=== PATIENT | male | born 1995 | race Caucasian/White ===

== ENCOUNTER 2016-11-01 19:56 | Inpatient (IN) | payer BC, OTHER ==
[~2016-11-01] VITALS: Ht 180.3 cm; Wt 77.1 kg
[2016-11-01 20:25] VITALS: BP 131/75
--- NOTE | 2016-11-01 20:35 | NUR ---
PRE-ADMISSION ASSESSMENT SEEN PATIENT IN INTAKE. PATIENT ALERT AND ORIENTED X 4. VS BP-131/75 P-96 R-18 T-97.6. PA - 6/10 BOTTOM OF BOTH FEET. SpO2 99% ON RA. PATIENT AMBULATORY AND WITH STEADY GAIT. RESPIRATION EVEN AND UNLABORED. PATIENT STATES NO ALLERGY TO FOOD OR MEDICATION. NO SEIZURE HISTORY. PATIENT NOTED FIDGETY, RESTLESS AND UNABLE TO SIT STILL. NO N/V. PATIENT STATES HE'S HERE FOR CRYSTAL METH. LAST USE WAS TODAY. UNABLE TO PROVIDE UA AT THIS TIME. Addendum: 11/02/16 at 0525 by MARYAN PRINGLE LVN CLARIFICATION OF TIME: PATIENT WAS SEEN IN INTAKE AT 2024
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
[2016-11-01 21:59] LABS: *AMPHETAMINE, URINE POSITIVE (NEGATIVE); *BARBITURATE, URINE NEGATIVE (NEGATIVE); *CANNABINOID, URINE NEGATIVE (NEGATIVE); *COCCAINE, URINE NEGATIVE (NEGATIVE); *OPIATE, URINE NEGATIVE (NEGATIVE); *PHENCYCLIDINE SCREEN,URINE NEGATIVE (NEGATIVE)
[2016-11-01] MEDS ORDERED: LOPERAMIDE HCL 2 MG CAPSULE PO PRN ×2 (22:30)
[2016-11-01] MEDS ORDERED: ACETAMINOPHEN 325 MG TABLET PO PRN (22:30)
[2016-11-01] MEDS ORDERED: IBUPROFEN 400 MG TABLET PO PRN (22:30)
[2016-11-01] MEDS ORDERED: MIRALAX 17 GM POWD.PACK PO PRN (22:30)
[2016-11-01] MEDS ORDERED: MAGNESIUM HYDROXIDE 30 ML LIQUID UDC PO PRN (22:30)
[2016-11-01] MEDS ORDERED: MAG HYDROX/AL HYDROX/SIMETH 30 ML LIQUID UDC PO PRN (22:30)
[2016-11-01] MEDS ORDERED: ONDANSETRON 4 MG/2 ML VIAL IM PRN (22:30)
[2016-11-01] MEDS ORDERED: CLONIDINE HCL 0.1 MG TABLET PO PRN (22:30)
[2016-11-01] MEDS ORDERED: ONDANSETRON ODT 4 MG TAB.RAPDIS SL PRN (22:30)
[2016-11-01] MEDS ORDERED: DICYCLOMINE HCL 20 MG TABLET PO PRN (22:30)
[2016-11-01] MEDS ORDERED: HYDROXYZINE PAMOATE 25 MG CAPSULE PO PRN (22:30)
--- NOTE | 2016-11-01 22:32 | NUR ---
ONE TIME ATIVAN/PRN BENADRYL AND VISTARIL ADMINISTRATION PATIENT NOTED RESTLESS, NOTED PACING INSIDE HIS ROOM. IRRITABLE, AGITATED,REPORTS UNABLE TO SLEEP. CIWA 6. ONE TIME ATIVAN , OBTAIN ORDER FROM DR. NUGENT. PRN BENADRYL AND VISTARIL GIVEN. WILL MONITOR FOR EFFECTIVENESS
[2016-11-01] MEDS: diphenhydrAMINE 50 MG CAPSULE PO PRN (23:22)
[2016-11-01] MEDS ORDERED: LORAZEPAM 1 MG TABLET ONE (23:27)
[2016-11-01] MEDS ORDERED: diphenhydrAMINE 50 MG CAPSULE ONE (23:30)
[2016-11-01] MEDS ORDERED: LORAZEPAM 1 MG TABLET PO ONE (23:30)
[2016-11-01] MEDS ORDERED: HYDROXYZINE PAMOATE 25 MG CAPSULE ONE (23:30)
[2016-11-02] VITALS: BP 126/64
--- NOTE | 2016-11-02 00:32 | NUR ---
PRN ATIVAN/VISTARIL RE-ASSESSMENT PATIENT IS BED ,CIWA DOWN TO 2. ATIVAN AND VISTARIL HELPFUL. WILL CONTINUE TO MONITOR.
--- NOTE | 2016-11-02 01:00 | NUR ---
PRN BENADRYL RE-ASSESSMENT PATIENT IN BED WITH EYES CLOSED. RESPIRATION EVEN AND UNLABORED. NO S/S DISTRESS. SAFETY MEASURES IN PLACE. CALL LIGHT IN REACH. WILL CONTINUE TO MONITOR.
[2016-11-02 04:00] VITALS: BP_SYST 97; BP_SYST 99; BP_DIAS 56; BP_DIAS 63
--- NOTE | 2016-11-02 07:18 | NUR ---
END OF SHIFT NOTE PATIENT IS A 21 YEAR OLD MALE WHO PRESENTS TO [facility] FOR METH DEPENDENCE. PATIENT IS NOT ON TAPER. PATIENT FULL CODE, REGULAR DIET AND NO KNOWN ALLERGY. PATIENT WAS GIVEN ONE TIME ATIVAN FOR CIWA 6 , EFFECTIVE CIWA DOWN TO 2. PATIENT WAS ALSO GIVEN BENADRYL AND VISTARIL. PATIENT SLEPT 6 HOURS. FLUID INTAKE OF 954 ML. VOIDED X 3. NO BM. SKIN INTACT. ON FALL PRECAUTION. SAFETY MEASURES IN PLACE. CALL LIGHT IN REACH. WILL CONTINUE TO MONITOR
--- NOTE | 2016-11-02 07:30 | NUR ---
START OF SHIFT Received report from candle molder nurse. 21 year old male patient admitted on 11/01/16 for Crystal meth dependence. Pt has a history of intermittent use of Alcohol, cocaine, LSD and marijuana. Pt is A/O x4. Pt is sleeping in bed at this time. Pt is not on a taper and is receiving PRN medications only. PRN Ativan, Vistaril and clonidine administered at night and effective. Pt slept for 6 hours. Pt is refusing labs at this time and stating "I would like to speak with the doctor first." Pt is resting in bed, RR even and unlabored. All needs met at this time. Will continue to monitor.
[2016-11-02 08:17] VITALS: BP 107/60
[2016-11-02] MEDS: MULTIVITAMINS,THERAPEUTIC TABLET PO SCH (09:00)
[2016-11-02] MEDS ORDERED: TUBERCULIN,PURIF.PROT.DERIV. 5 TU/0.1 ML TEST ID ONE (09:00)
[2016-11-02 13:47] VITALS: BP 116/63
[2016-11-02 16:00] VITALS: BP 114/66
--- NOTE | 2016-11-02 19:13 | NUR ---
END OF SHIFT Endorsed to nightman nurse. 21 year old male patient admitted on 11/01/16 for Crystal meth dependence. Pt has a history of intermittent use of Alcohol, cocaine, LSD and marijuana. Pt is A/O x4. Pt is sleeping in bed at this time. Pt is not on a taper and is receiving PRN medications only. No PRN medications were needed or administered throughout shift. Pt denies s/s of withdrawal and states he is just "very sleepy.". Pt is refusing labs, is aware. V/S remain WNL. Pt has adequate caloric and fluid intake. Pt is resting in bed, RR even and unlabored. All needs met at this time. Night nurse will continue to monitor.
[2016-11-02 20:00] VITALS: BP 129/67
--- NOTE | 2016-11-02 20:00 | NUR ---
START OF SHIFT NOTE RECEIVED PATIENT ALERT AND ORIENTED X 4. RESPIRATION EVEN AND UNLABORED. PATIENT C/O ANXIETY., GENERALIZED BODY ACHES 6/10, NOTED IRRITABLE AND RESTLESS. RELAXATION TECHNIQUE PROVIDED. NO N/V. RECEIVED REPORT FROM DAY SHIFT NURSE. PATIENT IS A 21 YEAR OLD MALE, ADMITTED FOR METH DEPENDENCE. PATIENT IS NOT ON TAPER, UNDER OBSERVATION. PATIENT IS FULL CODE, REGULAR DIET AND NO KNOWN ALLERGY . PATIENT RELAPSED 5 WEEKS AGO. PATIENT'S DRUG OF CHOICE ARE ALCOHOL INTERMITTENTLY 5 BEER ONCE OR TWICE A WEEK , CRYSTAL METH (IV/SNORT/PO) 1-2.5 GRAMS DAILY , COCAINE (SNORT) INTERMITTENTLY "UNKNOWN AMOUNT", LSD "10-15 HITS DAILY AND MARIJUANA OCCASIONALLY 1 GRAM . ON FALL PRECAUTION. SKIN INTACT. PATIENT DID NOT REQUIRE ANY PRN MEDICATION DURING THE DAY. PATIENT IN BED MOST OF THE DAY. ATE MEALS AND DRINKING FLUIDS. PATIENT STILL REFUSES BLOOD DRAW. EDUCATE ON RISKS/BENEFITS. LAST CIWA 0. SAFETY MEASURES IN PLACE. CALL LIGHT IN REACH. WILL CONTINUE TO MONITOR.
--- NOTE | 2016-11-02 22:19 | NUR ---
ONE TIME ATIVAN/PRN BENADRYL/VISTARIL AND ROBAXIN ADMINISTRATION PATIENT WAS GIVEN ONE TIME ATIVAN, OBTAIN ORDER FROM DR. NUGENT . PATIENT AGITATED, RESTLESS, ANXIOUS. SUNDAY 7. WILL MONITOR FOR EFFECTIVENESS. WILL CONTINUE TO MONITOR. Addendum: 11/03/16 at 0542 by MARYAN PRINGLE LVN CLARIFICATION OF TIME:ATIVAN /BENADRYL/VISTARIL AND ROBAXIN WAS GIVEN AT 0932
[2016-11-02] MEDS ORDERED: LORAZEPAM 1 MG TABLET PO ONE (23:15)
[2016-11-02] MEDS: diphenhydrAMINE 50 MG CAPSULE PO PRN (23:19)
[2016-11-02] MEDS: METHOCARBAMOL 750 MG TABLET PO PRN (23:19)
[2016-11-02] MEDS: HYDROXYZINE PAMOATE 25 MG CAPSULE PO PRN (23:20)
[2016-11-03] VITALS: BP 127/61
--- NOTE | 2016-11-03 00:19 | NUR ---
ONE TIME ATIVAN RE-ASSESSMENT PATIENT IN BED , WATCHING TV.PATIENT CALM, LYING STILL IN BED. CIWA ASSESSMENT NOW 2. WILL CONTINUE TO MONITOR.
--- NOTE | 2016-11-03 00:30 | NUR ---
PRN BENADRYL/VISTARIL RE-ASSESSMENT PATIENT IN BED ASLEEP. RESPIRATION EVEN AND UNLABORED. NO S/S OF DISTRESS. RESPIRATION EVEN AND UNLABORED. SAFETY MEASURES IN PLACE.CALL LIGHT IN REACH. WILL CONTINUE TO MONITOR.
[2016-11-03 04:00] VITALS: BP 126/66
--- NOTE | 2016-11-03 07:09 | NUR ---
Start of Shift Endorsement received from nightshift nurse. Pt is a 21 y/o male admitted for crystal meth dependence. Pt has been placed under observation under the care of Dr. Farrell. Pt is being treated by PRN medications until farther evaluation by Dr. Farrell. Pt is tolerating the taper well AEB CIWA 2 at midnight. Pt presented with withdrawal symptoms prior to midnight and received PRN Vistaril, Benadryl, Robaxin and Ativan, the medications were effective AEB CIWA 2 at midnight. VS WNL, Full Code. Pt reports sleeping 8 hours. . PT is alert and oriented x4. Pt is in STABLE condition at this time. Remains compliant with medication and diet regimen. All needs have been met, All safety measures in place per hospital policy. Bed in lowest position, side rails up x2, call-light within reach. Will continue to monitor
--- NOTE | 2016-11-03 07:30 | NUR ---
END OF SHIFT NOTE PATIENT REMAIN ALERT AND ORIENTED X 4. RESPIRATION EVEN AND UNLABORED. PATIENT C/O ANXIETY., GENERALIZED BODY ACHES 6/10, NOTED IRRITABLE AND RESTLESS. RELAXATION TECHNIQUE PROVIDED. NO N/V DURING SHIFT.PATIENT WAS GIVEN ONE TIME ATIVAN AT 2320, PRN VISTARIL AT 2320, BENADRYL AT 2319 AND ROBAXIN AT 2319, ALL MEDICATION EFFECTIVE. PATIENT COMPLIANT WITH MEDICATION , PATIENT RELAPSED 5 WEEKS AGO. PATIENT'S DRUG OF CHOICE ARE ALCOHOL INTERMITTENTLY 5 BEER ONCE OR TWICE A WEEK , CRYSTAL METH (IV/SNORT/PO) 1-2.5 GRAMS DAILY , COCAINE (SNORT) INTERMITTENTLY "UNKNOWN AMOUNT", LSD "10-15 HITS DAILY AND MARIJUANA OCCASIONALLY 1 GRAM . ON FALL PRECAUTION. SKIN INTACT. ATE MEALS WITH GOOD APPETITE AND DRINKING FLUIDS WELL. PATIENT STILL REFUSES BLOOD DRAW EXPLAINED RISKS/BENEFITS. SAFETY MEASURES IN PLACE. CALL LIGHT IN REACH. WILL CONTINUE TO MONITOR. SLEPT 8 HOURS. FLUID INTAKE 1,668 ML. VOIDED X 3. NO BM. LAST CIWA 1.
[2016-11-03 08:00] VITALS: BP 122/63
[2016-11-03] MEDS: MULTIVITAMINS,THERAPEUTIC TABLET PO SCH (09:00)
[2016-11-03 12:00] VITALS: BP 118/61
[2016-11-03 16:00] VITALS: BP 133/79
--- NOTE | 2016-11-03 19:19 | NUR ---
End of Shift Endorsement given to nightshift nurse. Pt is a 21 y/o male admitted for crystal meth dependence. Pt has been placed under observation under the care of Dr. Farrell. Pt is being treated by PRN medications until farther evaluation by Dr. Farrell. Pt is tolerating the taper well AEB CIWA 0 at 1600t. Pt has been scheduled to be discharged on 11/04/16, pt reports readiness for discharge. All documentation has been completed, discharge educated has been completed. intake: 3560, Void x2, BM x1. VS WNL, Full Code . PT is alert and oriented x4. Pt is in STABLE condition at this time. Remains compliant with medication and diet regimen. All needs have been met, All safety measures in place per hospital policy. Bed in lowest position, side rails up x2, call-light within reach. Will continue to monitor
[2016-11-03 19:23] LABS: *AMPHETAMINE, URINE POSITIVE (NEGATIVE); *BARBITURATE, URINE NEGATIVE (NEGATIVE); *CANNABINOID, URINE NEGATIVE (NEGATIVE); *COCCAINE, URINE NEGATIVE (NEGATIVE); *OPIATE, URINE NEGATIVE (NEGATIVE); *PHENCYCLIDINE SCREEN,URINE NEGATIVE (NEGATIVE)
[2016-11-03 20:00] VITALS: BP 129/70
--- NOTE | 2016-11-03 20:00 | NUR ---
Start of Shift Pt is a 21-year old, male, admitted for Crystal Meth dependence. Pt has been placed under observation under the care of Dr. Farrell. Only PRN meds as evaluated by . With PMHx of Anxiety, Depression, ADHD, Tympoplasty, Jaw Repair (2014). Pt with NKA, is Full Code and on Regular Diet. Pt is AAOx4, no SOB noted and not in respi distress. Pt is ambulatory with steady gait. Pt with NKA, is Full Code and on Regular Diet. Fall, universal and safety prec in place. Call light within reach. Kept pt warm, dry and comfortable. All needs met. Last CIWA=0. Will continue to monitor.
[2016-11-03] MEDS: METHOCARBAMOL 750 MG TABLET PO PRN (23:10)
[2016-11-03] MEDS: HYDROXYZINE PAMOATE 25 MG CAPSULE PO PRN (23:10)
--- NOTE | 2016-11-03 23:13 | NUR ---
RN note PRN Robaxin and Vistaril Pt c/o generalized muscle pain=6/10 and feeling anxious. Administered Robaxin 750 mg PO and Vistaril 50 mg PO as ordered. Will monitor and reassess.
[2016-11-04] VITALS: BP 135/61
--- NOTE | 2016-11-04 00:20 | NUR ---
RN note reassess Pt asleep on bed, no SOB nor facial grimacing noted. PRN meds effective.
[2016-11-04 04:00] VITALS: BP 127/62
--- NOTE | 2016-11-04 07:27 | NUR ---
End of Shift Pt is a 21-year old, male, admitted for Crystal Meth dependence. Pt has been placed under observation under the care of Dr. Farrell. Only PRN meds as evaluated by . With PMHx of Anxiety, Depression, ADHD, Tympoplasty, Jaw Repair (2014). Pt with NKA, is Full Code and on Regular Diet. Pt is AAOx4, no SOB noted and not in respi distress. Pt is ambulatory with steady gait. Pt with NKA, is Full Code and on Regular Diet. Fall, universal and safety prec in place. Call light within reach. Kept pt warm, dry and comfortable. All needs met. Last CIWA=0, slept for 6 hours. Endorsed to AM shift nurse for continuity of care.
--- NOTE | 2016-11-04 07:30 | NUR ---
START OF SHIFT NOTE:received pt from rigging engineer nurse, pt is in stable condition no s/s of pain or discomfort. pt is admitted to [facility] for etoh/crystal meth/cocaine withdrawal/dependence. pt is set to discharge today will assist pt in discharging. and will continue to monitor pt until pt has a safe discharge location.
[2016-11-04] MEDS: MULTIVITAMINS,THERAPEUTIC TABLET PO SCH (09:00)
[2016-11-04 10:00] VITALS: BP 109/60
[2016-11-04 13:49] VITALS: BP 139/83
[2016-11-04 17:50] VITALS: BP 136/79
--- NOTE | 2016-11-04 19:30 | NUR ---
Start of Shift Note: Patient is a 21 y/o male admitted on 11/01/16 for Crystal Meth dependence. Patient with past medical history of Depression, ADHD, Anxiety, Tympanoplasty (2010), Jaw repair (2014) & Borderline Sociopath per patient. No seizure history noted. Patient is on a regular diet with no known food and drug allergies. Full Code status. Fall & Seizure precaution noted. No taper noted. Patient is scheduled to be discharge tomorrow. Urine drug screen collected and resulted. Last Ciwa is 0. No PRN medications given during day shift. Patient is stable. Patient is alert & oriented x4. No shortness of breath noted. Respiration even & unlabored. Abdomen soft & non-distended. Bowel sounds active in all four quadrants. No nausea/vomiting noted. Patient denies pain/discomfort. No bilateral hand tremors noted. Patient denies hallucinations. Safety precautions are in place. Bed locked in lowest position. Both side rails up. Call light within pts reach. Will continue to monitor.
--- NOTE | 2016-11-04 19:30 | NUR ---
END OF SHIFT NOTE: PT IS IN STABLE CONDITION AT THIS TIME, PT HAS SAFE DISCHARGE LOCATION AND WILL DISCHARGE TOMORROW IN AM. PT IS ADMITTED UNDER OBSERVATION FOR METH AND OCCASIONAL ETOH. PT'S LAST CIWA IS 0. PT HAD PROVIDED URINE FOR DISCHARGE WILL ENDORSE PT TO WOMEN'S LACROSSE COACH NURSE.
[2016-11-04] MEDS ORDERED: HYDR-3895 PO (19:35)
[2016-11-04] MEDS ORDERED: METH-33 PO (19:35)
[2016-11-04 20:00] VITALS: BP 128/88
[2016-11-04] MEDS: HYDROXYZINE PAMOATE 25 MG CAPSULE PO PRN (22:50)
[2016-11-04] MEDS: METHOCARBAMOL 750 MG TABLET PO PRN (22:50)
[2016-11-04] MEDS: diphenhydrAMINE 50 MG CAPSULE PO PRN (22:50)
--- NOTE | 2016-11-04 22:51 | NUR ---
RN note PRN Benadryl, Robaxin and Vistaril Pt c/o inability to sleep, generalized muscle pain=6/10 and feeling anxious. Administered Benadryl 50 mg PO, Robaxin 750 mg PO and Vistaril 50 mg PO as ordered. Will monitor and reassess.
--- NOTE | 2016-11-04 23:55 | NUR ---
RN note reassess Pt asleep on bed, no SOB nor facial grimacing noted. PRN meds effective.
[2016-11-05 04:00] VITALS: BP 113/76
--- NOTE | 2016-11-05 07:18 | NUR ---
End of Shift Note: Patient is a 21 y/o male admitted on 11/01/16 for Crystal Meth dependence. Patient with past medical history of Depression, ADHD, Anxiety, Tympanoplasty (2011), Jaw repair (2014) & Borderline Sociopath per patient. No seizure history noted. Patient is on a regular diet with no known food and drug allergies. Full Code status. Fall & Seizure precaution noted. Patient is scheduled to be discharge today. Pt is going to [facility]. Urine drug screen collected and resulted. Last Ciwa is 0. Pt was given PRN Robaxin for body aches, Vistaril for anxiety & Benadryl for sleep. Pt had an uneventful night. Pt remained stable and vitals remains WNL. Pt slept for a total of 7 hours. Pt consumed 1631ml of fluids. Voided 1x with no bowel movement. All needs attended & met. Safety precautions are in place. Bed locked in lowest position. Both side rails up. Call light within pts reach. Will endorse pt to day shift nurse.
--- NOTE | 2016-11-05 07:20 | NUR ---
Start of shift note SBAR report rcv'd. Pt was admitted for ETOH dependence, methamphetamine, cocaine, LSD and marijuana use. Pt has a PMH of depression, ADHD, anxiety, borderline, tympanoplasy and jaw repair. Pt states that he feels ready for discharge. Pt has no complaints at this time. Pt is on a regular diet, NKA, and is a full code. All needs addressed at this time. Will continue to monitor pt.
[2016-11-05 08:00] VITALS: BP 120/60
--- NOTE | 2016-11-05 08:30 | NUR ---
Refused medication Pt refused to take MVI. Pt states that he doesn't feel like he needs it. All other needs addressed at this time. Will continue to monitor pt.
[2016-11-05] MEDS: MULTIVITAMINS,THERAPEUTIC TABLET PO SCH (08:43)
--- NOTE | 2016-11-05 09:02 | NUR ---
Discharge note Pt was admitted for ETOH dependence. Pt states that he feels ready for discharge. Pt has a recent CIWA of 0. VS are WNL. Pt LBM 11/04/16. Pt denies SI/HI. Pt verbalized his understanding of the discharge instructions. Pt prescriptions, discharge packet and all belongings given to pt. Pt ID band removed. Pt ambulated off of unit with [facility]PER[facility], left facility via [facility] for [facility].
== END 2016-11-05 09:02 | disposition other institution (70) | DRG 895 ==
LOC: SRC 19:56
PROVIDERS: ADMIT Internal Medicine; ATTEND Internal Medicine
PROC: HZ2ZZZZ Detoxification Services for Substance Abuse Treatment (ICD-10-PCS; principal; 2016-11-01)
PROC: HZ51ZZZ Individual Psychotherapy for Substance Abuse Treatment, Behavioral (ICD-10-PCS; 2016-11-03)
DX: F15.23 Other stimulant dependence with withdrawal (principal); Z59.0 Homelessness; F17.210 Nicotine dependence, cigarettes, uncomplicated; F10.20 Alcohol dependence, uncomplicated; F14.90 Cocaine use, unspecified, uncomplicated; Y90.9 Presence of alcohol in blood, level not specified; F16.90 Hallucinogen use, unspecified, uncomplicated; F90.9 Attention-deficit hyperactivity disorder, unspecified type; Z86.59 Personal history of other mental and behavioral disorders
CPT/HCPCS: 70030-TC; 71010; 80307; A4663; Q0163

== ENCOUNTER 2016-11-20 12:44 | Inpatient (IN) | payer BC, OTHER ==
[~2016-11-20] VITALS: Ht 180.3 cm; Wt 77.1 kg
[~2016-11-20 12:44] MED LIST: HYDROXYZINE PAM25 M1 PO; ROBAXIN750 MG PO
--- NOTE | 2016-11-20 13:10 | NUR ---
Pre Admission Pre admission completed at intake office at 1255, presented a 21 year old male from [place], patient noted fidgety and inability to sit still, patient is alert and oriented x4. vital signs: bp: 132/68 p: 85 t: 97.8 r: 20 o2 sat: 96%. Patient weighs 170 lbs and is 5 feet 11 inches. Patient educated regarding unit protocols, with good verbal understanding. Patient reports he is here to detox off of speed.
--- NOTE | 2016-11-20 14:00 | NUR ---
Admission Patient arrived on unit at 1320, patient oriented to unit and to room educated regarding call light use with good verbal understanding, patient reports he is homeless with his girlfriend. Patients body search completed, noted with intact skin no breakdown, bruising or discoloration noted. Patients body search completed by male intake no contraband found. Patient reports he does not have any allergies. Reports he does not have a primary care physician. Patient reports past medical history of: anxiety, depression, bipolar d/o, and antisocial, per patient does not recall when he was diagnosed with them. Patient denies currently taking any home medications. Reports past surgical history of: jaw surgery in 2010 and ear drum repair. Patient denies any seizure history. Patient denies any family history of substance abuse. Patient reports substance use history of: 1.methamphetamine, began using 10 years ago, reports for the past 15 days has been snorting or IV using methamphetamine 6 grams daily. 2. Xanax, began using one year ago, and reports for the past 10 days has been taking 6mg of Xanax PO daily. 3. etoh- reports began drinking alcohol 13 years ago, reports for the past 15 days has been consuming 40 oz of beer daily. Patient reports he has been to 83 treatment centers but can only recall the last two previous ones, patient reports : 1. [facility] in [place] for 1.5 weeks, in october 2016 2. [facility] for 3 days, in october 2016 Patient reports his longest period of sobriety was of over one year when he was 14 years old. Patients pupils are equal and reactive to light, 2mm. Patients abdomen is soft and non distended. No episodes of N/V/D noted, bowel sounds heard in all quadrants. Respirations are even and unlabored, no SOB, lungs clear upon auscultation. Patient presenting with: mild anxiety and moderately fidgety with admitting ciwa score of: 5. Dr. Mccabe aware of Admission, psychiatrist aware of new admission. Safety measures in place. Call light kept with in reach, all needs met and rendered, will continue to monitor closely.
[2016-11-20] MEDS ORDERED: MAGNESIUM HYDROXIDE 30 ML LIQUID UDC PO PRN (14:30)
[2016-11-20] MEDS ORDERED: MIRALAX 17 GM POWD.PACK PO PRN (14:30)
[2016-11-20] MEDS ORDERED: IBUPROFEN 400 MG TABLET PO PRN (14:30)
[2016-11-20] MEDS ORDERED: LOPERAMIDE HCL 2 MG CAPSULE PO PRN ×2 (14:30)
[2016-11-20] MEDS ORDERED: LORAZEPAM 2 MG/1 ML VIAL IM PRN (14:30)
[2016-11-20] MEDS ORDERED: CLONIDINE HCL 0.1 MG TABLET PO PRN (14:30)
[2016-11-20] MEDS ORDERED: ACETAMINOPHEN 325 MG TABLET PO PRN (14:30)
[2016-11-20] MEDS ORDERED: MAG HYDROX/AL HYDROX/SIMETH 30 ML LIQUID UDC PO PRN (14:30)
[2016-11-20] MEDS ORDERED: ONDANSETRON 4 MG/2 ML VIAL IM PRN (14:30)
[2016-11-20] MEDS ORDERED: LORAZEPAM 1 MG TABLET PO PRN ×3 (14:30)
[2016-11-20] MEDS ORDERED: ONDANSETRON ODT 4 MG TAB.RAPDIS SL PRN (14:30)
[2016-11-20] MEDS ORDERED: THIAMINE HCL 200 MG/2 ML VIAL IM ONE (14:30)
[2016-11-20] MEDS ORDERED: DICYCLOMINE HCL 20 MG TABLET PO PRN (14:30)
[2016-11-20] MEDS ORDERED: diphenhydrAMINE 50 MG CAPSULE PO PRN (14:30)
[2016-11-20 17:00] VITALS: BP_SYST 120; BP_SYST 122; BP_DIAS 63; BP_DIAS 82; TEMP 98
--- NOTE | 2016-11-20 18:55 | NUR ---
END OF SHIFT Patient alert and oriented x4, vital signs stable during shift. Patient with admitting Dx: Methamphetamine dependence. Patient continues under close observation, monitoring vital signs and ciwa scores closely. 1700 assessment patient presented with: mild anxiety and moderately fidgety with ciwa score of: 5. Patient was administered no PRNs medications during shift. Patient encouraged adequate PO fluid intake as tolerated. Encouraged to attend group therapies/sessions to learn new coping skills to prevent relapse denies any SI/HI. Safety measures in place. call light kept with in reach. all needs met and rendered. patient endorsed to night cleaner nurse, all pertinent information discussed.
--- NOTE | 2016-11-20 19:08 | NUR ---
Start of shift note Received report from day shift nurse. Pt is a 21 yo male, A+Ox4, presenting to [facility] for ETOH/Benzo/Meth dependence. Pt has NKA, is Full Code status, and on Regular diet. Pt has HX of Anxiety, Anti-social disorder, bipolar disorder, and depression. Pt is on PRN medications for observation. No s/s of distress noted at this time. Respirations even and unlabored. Will continue to monitor.
[2016-11-20 20:17] VITALS: BP 126/86; TEMP 97.9
--- NOTE | 2016-11-20 21:41 | NUR ---
PRN Ativan and Ibuprofen Pt c/o anxiety with CIWA: 5 and general body pain 5/10 and requested for PRN Ativan and Ibuprofen. Medications given and tolerated well. Will reassess within 1 HR. Will continue to monitor.
--- NOTE | 2016-11-20 22:35 | NUR ---
PRN Ativan and Ibuprofen Reassessment Medication effective. Pt shows reduction in anxiety and pain. No s/s of ASE/distress noted at this time. Respirations even and unlabored. Will continue to monitor.
[2016-11-21 00:20] VITALS: BP 121/56; TEMP 97.9
[2016-11-21 04:39] VITALS: BP 114/49; TEMP 97.6
--- NOTE | 2016-11-21 07:01 | NUR ---
End of shift note Pt is a 21 yo male, A+Ox4, presenting to [facility] for ETOH/Benzo/Meth dependence. Pt has NKA, is Full Code status, and on Regular diet. Pt has HX of Anxiety, Anti-social disorder, bipolar disorder, and depression. Pt is on PRN medications for observation. Pt was given PRN Ativan 1gm and Ibuprofen @2141. Pt slept for a total of 11 HRS. Last CIWA: 1 @0400. No s/s of distress noted at this time. Respirations even and unlabored. Will endorse to day shift nurse.
--- NOTE | 2016-11-21 07:05 | NUR ---
Start of Shift Endorsement received from nightshift nurse. Pt is a 21 y/o male admitted for alcohol, xanax and methamphetamine dependence. Pt has been placed under observation until farther evaluation by Dr. Mccabe. Pt received PRN Ativan and Motrin during the night. Pt slept 11 hours. Pt is mildly withdrawing at this time AEB CIWA 1 at 0400. VS WNL, Full Code. PT is alert and oriented x4. Pt is in STABLE condition at this time. Remains compliant with medication and diet regimen. All needs have been met, All safety measures in place per hospital policy. Bed in lowest position, side rails up x2, call-light within reach. Will continue to monitor
[2016-11-21 08:00] VITALS: BP 102/52; TEMP 98.1
[2016-11-21] MEDS ORDERED: TUBERCULIN,PURIF.PROT.DERIV. 5 TU/0.1 ML TEST ID ONE (09:00)
[2016-11-21] MEDS: FOLIC ACID 1 MG TABLET PO SCH (09:39)
[2016-11-21] MEDS: THIAMINE HCL 100 MG TABLET PO SCH (09:39)
[2016-11-21] MEDS: MULTIVITAMINS,THERAPEUTIC TABLET PO SCH (09:39)
[2016-11-21 12:00] VITALS: BP 125/80; TEMP 98.1
[2016-11-21 16:00] VITALS: BP 115/72; TEMP 98
--- NOTE | 2016-11-21 18:45 | NUR ---
End of Shift Endorsement given to nightshift nurse. Pt is a 21 y/o male admitted for alcohol, xanax and methamphetamine dependence. Pt has been placed under observation until farther evaluation by Dr. Mccabe. Pt has been scheduled to be discharged on 11/22/16. Pt did not participate in groups or activities. Pt is mildly withdrawing at this time AEB CIWA 1 at 1600. VS WNL, Full Code. Intake: 2991ml, Void x4. PT is alert and oriented x4. Pt is in STABLE condition at this time. Remains compliant with medication and diet regimen. All needs have been met, All safety measures in place per hospital policy. Bed in lowest position, side rails up x2, call-light within reach. Will continue to monitor
--- NOTE | 2016-11-21 19:10 | NUR ---
Start of shift note Received report from day shift nurse. Pt is a 21 yo male, A+Ox4, presenting to [facility] for ETOH/Benzo/Meth dependence. Pt has NKA, is Full Code status, and on Regular diet. Pt has HX of Anxiety, Anti-social disorder, bipolar disorder, and depression. Pt is on PRN medications for observation and is due for discharge tomorrow. No s/s of distress noted at this time. Respirations even and unlabored. Will continue to monitor.
[2016-11-21 20:15] VITALS: BP 138/62; TEMP 98
[2016-11-21] MEDS ORDERED: CLONIDINE HCL 0.1 MG TABLET PO ONE (22:15)
[2016-11-21] MEDS ORDERED: HYDROXYZINE PAMOATE 25 MG CAPSULE PO ONE (22:15)
[2016-11-21] MEDS ORDERED: HYDROXYZINE PAMOATE 25 MG CAPSULE PO PRN (22:15)
--- NOTE | 2016-11-21 22:25 | NUR ---
PRN Clonidine, Vistaril, and Benadryl Pt c/o anxiety and inability to sleep and requested for PRN Clonidine, Vistaril, and Benadryl. Medications given and tolerated well. Will reassess within 1 HR. Will continue to monitor.
[2016-11-21] MEDS ORDERED: HYDROXYZINE PAMOATE 25 MG CAPSULE ONE (22:28)
[2016-11-21] MEDS ORDERED: CLONIDINE HCL 0.1 MG TABLET ONE (22:29)
--- NOTE | 2016-11-21 23:20 | NUR ---
PRN Clonidine, Vistaril, and Benadryl Reassessment Medications effective. Pt showing reduction in Anxiety and is resting well in bed. No s/s of ASE/distress noted at this time. Respirations even and unlabored. Will continue to monitor.
[2016-11-22 00:19] VITALS: BP 104/58; TEMP 97.9
[2016-11-22 04:12] VITALS: BP 111/56; TEMP 98.1
--- NOTE | 2016-11-22 07:02 | NUR ---
End of shift note Pt is a 21 yo male, A+Ox4, presenting to [facility] for ETOH/Benzo/Meth dependence. Pt has NKA, is Full Code status, and on Regular diet. Pt has HX of Anxiety, Anti-social disorder, bipolar disorder, and depression. Pt is on PRN medications for observation and is due for discharge today. Pt was given PRN Clonidine, Vistaril, and Benadryl @2225. Pt slept for a total of 8 HRS. Last CIWA: 0 @0400. No s/s of distress noted at this time. Respirations even and unlabored. Will endorse to day shift nurse.
--- NOTE | 2016-11-22 07:30 | NUR ---
Start of shift note; Received report from night nurse. Patient is a 21 year old male admitted on 11/20/16 for Benzo/ETOH and meth dependence for 10-15 days. Patient was placed on PRN medications only. Patient reported history of anxiety, bipolar disorder, depression. Patient is on full code status, NKA, regular diet. Patient is scheduled and medically cleared for discharge today. All safety measures secured. Will continue to monitor patient.
[2016-11-22 08:00] VITALS: BP 104/60; TEMP 97.8
[2016-11-22] MEDS: THIAMINE HCL 100 MG TABLET PO SCH (09:00)
[2016-11-22] MEDS: FOLIC ACID 1 MG TABLET PO SCH (09:00)
[2016-11-22] MEDS: MULTIVITAMINS,THERAPEUTIC TABLET PO SCH (09:00)
--- NOTE | 2016-11-22 10:34 | NUR ---
Nurse note; Patient is AOX4. Patient is medically cleared and scheduled for discharge today. He went in the recreational room to talk to retail and promotions coordinator and administration staff. Patient suddenly became very angry, intrusive and combative towards staff. Unable to redirect patient. Patient walked out of the recreational room and punched the wall next to the rec room door. Called Code zimmer , redirected patient as needed. Patient remained very angry then punched the wall next room 307. Patient was escorted off the unit by security and [employer]. All patient's belongings and valuables were given to patient.
--- NOTE | 2016-11-22 10:37 | NUR ---
Discharge note; Patient is AOX4. Patient is medically cleared and scheduled for discharge. Patient was escorted out of the hospital by security and [employer] at exactly 1037 on 11/22/16. All patient's belongings , valuables were given to patient. Patient denies S/I or H/I. Patient left the in stable condition. Met all needs.
== END 2016-11-22 10:37 | disposition other institution (70) | DRG 897 ==
LOC: SRC 12:44
PROVIDERS: ADMIT Internal Medicine; ATTEND Internal Medicine
PROC: HZ2ZZZZ Detoxification Services for Substance Abuse Treatment (ICD-10-PCS; principal; 2016-11-20)
DX: F15.220 Other stimulant dependence with intoxication, uncomplicated (principal); F17.210 Nicotine dependence, cigarettes, uncomplicated; F41.9 Anxiety disorder, unspecified; Z59.0 Homelessness; Z82.49 Family history of ischemic heart disease and other diseases of the circulatory system; F90.9 Attention-deficit hyperactivity disorder, unspecified type; F13.120 Sedative, hypnotic or anxiolytic abuse with intoxication, uncomplicated; F10.10 Alcohol abuse, uncomplicated; Y90.9 Presence of alcohol in blood, level not specified

== ENCOUNTER 2017-02-20 07:47 | Inpatient (IN) | payer BC, OTHER ==
[~2017-02-20] VITALS: Ht 180.3 cm; Wt 72.6 kg
[~2017-02-20 07:47] MED LIST changes: +HYDR-3895 PO; -HYDROXYZINE PAM25 M1 PO; +METH-33 PO; -ROBAXIN750 MG PO
--- NOTE | 2017-02-20 09:20 | NUR ---
PRE ASSESSMENT Pt received in the intake office. Pt alert and oriented to name, place, and time. Perrla. Skin warm and dry to touch. Respirations even and unlabored. Bilateral hand tremors noted. Pt anxious and restless and is fidgety, not able to sit still, constantly foot tapping, and with hyperverbal speech noted. Pt made aware of unit rules. bd=396/75 o2=98%@ ra p=104 pain=0 t=98.6.
--- NOTE | 2017-02-20 10:00 | NUR ---
ADMISSION Pt received in the intake office. Pt states is homeless at this time. Pt admitted for poly substance abuse. Pt alert and oriented to name, place, and time. Perrla. Skin warm and dry to touch. Respirations even and unlabored. Bilateral hand tremors noted. Pt anxious and restless and is fidgety, not able to sit still, constantly foot tapping, and with hyperverbal speech noted. Pt made aware of unit rules. ok=051/75 o2=98%@ ra p=104 pain=0 t=98.6. Pt denies any allergies. Pt denies any sz history. Pt was seen by MD. Oriented pt to room and unit. substance hx: -methamphetamine IV 9 gm daily x1 week and used for total 9 years. Last used 02/20/17 6 gm -etoh beer 80 oz daily x1 week and last used 02/19/17 40oz -etoh zee shine. just uses occassionally. last used 02/19/17 1 drink - pcp. uses 3 times a week. Last used 02/18/17 4 sticks - DMT inhalation. uses twice a week. last used on 02/18/17 -Bath salts. Just used once. Pt stated it was suppose to be methamphetamine. Last used 02/16/17 medical hx Pt denies any medical hx tx hx [facility] 2017 [facility] 2017 Pt also states has multiple treatment sites but does not remember all of them.
[2017-02-20] MEDS ORDERED: ONDANSETRON ODT 4 MG TAB.RAPDIS SL PRN (11:15)
[2017-02-20] MEDS ORDERED: ONDANSETRON 4 MG/2 ML VIAL IM PRN (11:15)
[2017-02-20] MEDS ORDERED: diphenhydrAMINE 50 MG CAPSULE PO PRN (11:15)
[2017-02-20] MEDS ORDERED: DICYCLOMINE HCL 20 MG TABLET PO PRN (11:15)
[2017-02-20] MEDS ORDERED: LOPERAMIDE HCL 2 MG CAPSULE PO PRN ×2 (11:15)
[2017-02-20] MEDS ORDERED: MAGNESIUM HYDROXIDE 30 ML LIQUID UDC PO PRN (11:15)
[2017-02-20] MEDS ORDERED: MAG HYDROX/AL HYDROX/SIMETH 30 ML LIQUID UDC PO PRN (11:15)
[2017-02-20] MEDS ORDERED: ACETAMINOPHEN 325 MG TABLET PO PRN (11:15)
[2017-02-20] MEDS ORDERED: MIRALAX 17 GM POWD.PACK PO PRN (11:15)
[2017-02-20] MEDS ORDERED: LORAZEPAM 1 MG TABLET PO PRN ×2 (11:15)
[2017-02-20] MEDS ORDERED: THIAMINE HCL 200 MG/2 ML VIAL IM ONE (11:15)
[2017-02-20] MEDS ORDERED: LORAZEPAM 2 MG/1 ML VIAL IM PRN (11:15)
[2017-02-20] MEDS ORDERED: IBUPROFEN 600 MG TABLET PO PRN (11:15)
[2017-02-20 12:55] LABS: *AMPHETAMINE, URINE POSITIVE (NEGATIVE); *BARBITURATE, URINE NEGATIVE (NEGATIVE); *CANNABINOID, URINE NEGATIVE (NEGATIVE); *COCCAINE, URINE NEGATIVE (NEGATIVE); *OPIATE, URINE NEGATIVE (NEGATIVE); *PHENCYCLIDINE SCREEN,URINE NEGATIVE (NEGATIVE)
[2017-02-20] MEDS: GABAPENTIN 300 MG CAPSULE PO SCH (15:33)
--- NOTE | 2017-02-20 18:28 | NUR ---
END OF SHIFT Pt 21 y/o male admitted for polysubstance dependence. Pt alert and oriented to name, place, and time. Perrla. Skin warm and dry to touch. Respirations even and unlabored. Bilateral hand tremors noted. Pt with periods of anxiety throughout the day. Pt observed mostly walking around the hallways. Pt attended group activity. Pt medication compliant and tolerated well. No ASE noted. Pt refused to have labs drawn even with encouragement. Pt states, I dont like needles. Bed on lowest position with side rails x2 up for safety. Call light within reach. No distress noted at this time.
--- NOTE | 2017-02-20 20:00 | NUR ---
1999 Patient received awake, alert and ambulating briskly in hallway. Gait is steady. Patient escorted back to his room # [id number] for nurses assess and vital signs . Patient responds to nurse's greeting and introduction with very brief eye contact and no verbal response. Patient's color is pink and his skin is warm, dry and intact. Patient's overall appearance is slightly disheveled and body movements are jittery. Patient denies any pain and offers no requests for anything. Patient does not verbally answer nurse's assess questions and he will just give occasional head nod or shake. Vital signs are: 97.6-101-20 131/71, O2 Sat 98%, CIWA 5. Patient was admitted today, 02/20/17 for: Methamphetamine, Alcohol, PCP, DMT and Bath Salts withdrawal and he is currently on PRN medications only for withdrawal symptoms. Bed is locked and in lowest position, bed rails are up X 1 and call light within patient's easy reach.
--- NOTE | 2017-02-20 20:44 | NUR ---
PRN MEDICATION: Prn Ativan 1 mg p.o. given for CIWA 5, moderate anxiety and being very jittery.
[2017-02-20] MEDS ORDERED: TRAZODONE 100 MG TABLET PO SCH (21:00)
[2017-02-20] MEDS ORDERED: GABAPENTIN 300 MG CAPSULE PO SCH (21:00)
--- NOTE | 2017-02-20 21:44 | NUR ---
REASSESSMENT PRN MEDICATION: Patient lying quietly and still, with eyes closed. Patient not cooperative with reassessment, so CIWA not done at this time.
[2017-02-21 01:00] VITALS: BP 126/73
--- NOTE | 2017-02-21 04:00 | NUR ---
Patient uncooperative with V/S and assess, so unable to do at this time.
--- NOTE | 2017-02-21 06:30 | NUR ---
0630 Patient slept a total of 10.5 hours and he had 1 void and no stools. Total intake was 950 ml p.o. Prn medication given noted separately per floor protocol. V/SS afebrile, last CIWA 5. Patient is essentially resistive and uncooperative with assessments when he is awake, this shift. Patient is presently sleeping soundly in stable condition with eyes closed and respirations deep, even, unlabored at 12.
--- NOTE | 2017-02-21 07:45 | NUR ---
START OF SHIFT Pt 21 y/o male admitted for poly substance dependence. Pt received in room on bed with eyes closed resting, but easily arousable to name. Pt alert and oriented to name, place, and time. Perrla. Skin warm and dry to touch. Respirations even and unlabored. Bilateral hand tremors noted slightly. It was reported that pt slept for 10 hours last night. Bed on lowest position with side rails x2 up for safety. Call light within reach. No distress noted at this time.
[2017-02-21 09:00] VITALS: BP 99/59
[2017-02-21] MEDS ORDERED: TUBERCULIN,PURIF.PROT.DERIV. 5 TU/0.1 ML TEST ID ONE (09:00)
[2017-02-21] MEDS: DOCUSATE SODIUM 250 MG CAPSULE PO SCH (09:00)
[2017-02-21] MEDS: FOLIC ACID 1 MG TABLET PO SCH (09:15)
[2017-02-21] MEDS: THIAMINE HCL 100 MG TABLET PO SCH (09:15)
[2017-02-21] MEDS: MULTIVITAMINS,THERAPEUTIC TABLET PO SCH (09:15)
[2017-02-21] MEDS: GABAPENTIN 300 MG CAPSULE PO SCH ×3 (09:15→21:06)
--- NOTE | 2017-02-21 10:30 | NUR ---
MD COMMUNICATION MD aware that pt refused to have PPD done and is refusing labs to be drawn.
[2017-02-21 13:00] VITALS: BP 105/60
[2017-02-21 17:00] VITALS: BP 122/71
--- NOTE | 2017-02-21 18:38 | NUR ---
END OF SHIFT Pt 21 y/o male admitted for polysubstance dependence. Pt alert and oriented to name, place, and time. Perrla. Skin warm and dry to touch. Respirations even and unlabored. Bilateral hand tremors noted. Pt with periods of anxiety throughout the day. Pt observed mostly walking around the hallways. Pt attended group activity. Pt medication compliant and tolerated well. No ASE noted. Pt refused to have labs drawn today even with encouragement. MD aware. Bed on lowest position with side rails x2 up for safety. Call light within reach. No distress noted at this time.
--- NOTE | 2017-02-21 20:00 | NUR ---
1999 Patient received awake and lying in his bed watching television. Patient returns nurse's greeting with eye contact and, " Hi, I'm okay,but I have some stomach stuff, because I ate too much of that emirati food tonight". Patient refuses offer of Prn medication to help to relieve his indigestion. Patient states, " No, I'll just wait for my regular meds". Patient is oriented to person, place, day and his personal situation. Reoriented to time and date. Patient's color is pink and his skin is warm, dry and intact. Patient states that he did eat 'some meals today' and he is drinking various fluids ad santiago. Patient noted to be out of his room, ambulating in hallway at times, however he does not attend [facility] groups regularly. Patient denies any pain and voices no requests at this time. Vital signs are: 97.6-85-18 122/85, O2 Sat 95%,, CIWA 3 . Patient was admitted on 02/20/17 for: Methamphetamine, Alcohol, PCP, DMT and Bath Salts withdrawal and he is currently on PRN medications only for any withdrawal symptoms. Patient is minimally cooperative with nurse assess, ignoring some questions and giving only very brief or monosyllable answers to other questions and he has to be prompted a bit in his cooperation. Overall mood/affect flat, withdrawn, dismissive. Bed is locked and in lowest position, bed rails are up X 1 and call light within patient's easy reach.
[2017-02-21 21:00] VITALS: BP 122/85
--- NOTE | 2017-02-21 21:07 | NUR ---
PRN MEDICATION: " My stomach has some cramps-like". Prn Bentyl 20 mg p.o. given for abdominal spasms.
[2017-02-21] MEDS: TRAZODONE 100 MG TABLET PO PRN (21:12)
--- NOTE | 2017-02-21 21:12 | NUR ---
PRN MEDICATION: Prn Trazodone 150 mg p.o. given per request for sleep medication.
--- NOTE | 2017-02-21 22:12 | NUR ---
REASSESSMENT PRN MEDICATIONS: Patient is sleeping comfortably with eyes closed and respirations deep, even, unlabored at 14.
[2017-02-22 01:00] VITALS: BP 118/81
--- NOTE | 2017-02-22 05:00 | NUR ---
Patient refused to be awakened for V/S to be done at this time.
--- NOTE | 2017-02-22 06:30 | NUR ---
0630 Patient slept a total of 7.75 hours and he had 2 voids and no stools. Total intake was 850 ml p.o. Prn medications given noted separately per floor protocol. V/SS afebrile, last CIWA at 0000 was 2. patient is presently sleeping comfortably in stable condition with eyes closed and respirations quiet, even, unlabored at 12.
--- NOTE | 2017-02-22 07:40 | NUR ---
START OF SHIFT Pt 21 y/o male admitted for poly substance dependence. Pt received in room on bed with eyes closed resting, but easily arousable to name. Pt alert and oriented to name, place, and time. Perrla. Skin warm and dry to touch. Respirations even and unlabored. Bilateral hand tremors noted slightly. It was reported that pt slept for 8 hours last night. Bed on lowest position with side rails x2 up for safety. Call light within reach. No distress noted at this time.
[2017-02-22 08:00] VITALS: BP 100/39
[2017-02-22 09:00] VITALS: BP 100/64
[2017-02-22] MEDS: THIAMINE HCL 100 MG TABLET PO SCH (09:00)
[2017-02-22] MEDS: DOCUSATE SODIUM 250 MG CAPSULE PO SCH (09:00)
[2017-02-22] MEDS: MULTIVITAMINS,THERAPEUTIC TABLET PO SCH (09:00)
[2017-02-22] MEDS: FOLIC ACID 1 MG TABLET PO SCH (09:00)
[2017-02-22] MEDS: GABAPENTIN 300 MG CAPSULE PO SCH ×3 (09:07→21:09)
--- NOTE | 2017-02-22 14:28 | NUR ---
Therapist prompted client about group times. Client stated he will try to attend group.
[2017-02-22 14:33] VITALS: BP 105/68
[2017-02-22] MEDS: HYDROXYZINE PAMOATE 25 MG CAPSULE PO PRN ×2 (15:47→21:09)
--- NOTE | 2017-02-22 15:49 | NUR ---
PRN Pt states feels anxious. Vistaril po prn per MD order given and tolerated well.
[2017-02-22] MEDS ORDERED: CLONIDINE HCL 0.1 MG TABLET PO PRN (16:00)
[2017-02-22] MEDS ORDERED: DICY20TA28 PO (16:11)
[2017-02-22] MEDS ORDERED: GABA-534 PO (16:11)
[2017-02-22] MEDS ORDERED: TRAZ-147 PO (16:11)
[2017-02-22] MEDS ORDERED: HYDR-3895 PO (16:11)
--- NOTE | 2017-02-22 16:12 | NUR ---
PRN Pt states feels really anxious and restless. MD made aware with new order for catapres po prn per MD order given and tolerated well.
[2017-02-22 16:16] VITALS: BP 113/68
--- NOTE | 2017-02-22 16:49 | NUR ---
VIANEY SWENSON Pt observed in room on bed with eyes closed resting, but easily arousable to name. No distress noted at this time.
--- NOTE | 2017-02-22 17:12 | NUR ---
VIANEY SWENSON Pt observed in room on bed with eyes closed resting, but easily arousable to name. No distress noted at this time.
--- NOTE | 2017-02-22 18:13 | NUR ---
END OF SHIFT Pt 21 y/o male admitted for polysubstance dependence. Pt alert and oriented to name, place, and time. Perrla. Skin warm and dry to touch. Respirations even and unlabored. Bilateral hand tremors noted slightly. Pt observed mostly in room this morning, but did attend group activity. Pt selective with medication and tolerated well. No ASE noted. Pt is scheduled to be discharged tomorrow. Bed on lowest position with side rails x2 up for safety. Call light within reach. No distress noted at this time.
--- NOTE | 2017-02-22 19:15 | NUR ---
START OF SHIFT NOTE : Pt 21 y/o male admitted for poly substance dependence. Pt received in room on bed with eyes closed resting, but easily arousable to name. Pt alert and oriented to name, place, and time. Perrla. Skin warm and dry to touch. Respirations even and unlabored. Bilateral hand tremors noted slightly. Encouraged adequate PO fluid intake as tolerated. Patient denies any SI/HI. Encouraged patient to attend group therapies/sessions to learn new coping skills to prevent relapse. Safety measures in place : bed on lowest position with side rails x2 up for safety, call light within reach. Will continue to monitor closely and offer help.
[2017-02-22 20:00] VITALS: BP 130/76
[2017-02-22 20:59] LABS: *AMPHETAMINE, URINE POSITIVE (NEGATIVE); *BARBITURATE, URINE NEGATIVE (NEGATIVE); *CANNABINOID, URINE NEGATIVE (NEGATIVE); *COCCAINE, URINE NEGATIVE (NEGATIVE); *OPIATE, URINE NEGATIVE (NEGATIVE); *PHENCYCLIDINE SCREEN,URINE NEGATIVE (NEGATIVE)
--- NOTE | 2017-02-22 21:00 | NUR ---
PRN VISTARIL, TRAZODONE Pt states feels anxious, complains of sleeplessness. PRN VISTARIL, TRAZODONE per MD order given and tolerated well. Safety measures in place : bed on lowest position with side rails x2 up for safety, call light within reach. Will continue to monitor closely and offer help.
[2017-02-22] MEDS: TRAZODONE 100 MG TABLET PO PRN (21:09)
--- NOTE | 2017-02-22 22:00 | NUR ---
RE-ASSESSMENT ALO CRUZ Pt. is sleeping, RR=16 unlabored and even. Safety measures in place : bed on lowest position with side rails x2 up for safety, call light within reach. Will continue to monitor closely and offer help.
--- NOTE | 2017-02-23 06:36 | NUR ---
END OF SHIFT NOTE : Pt 21 y/o male admitted for poly substance dependence. Pt received in room on bed with eyes closed resting, but easily arousable to name. Pt alert and oriented to name, place, and time. Perrla. Skin warm and dry to touch. Respirations even and unlabored. Bilateral hand tremors noted slightly. Encouraged adequate PO fluid intake as tolerated. Patient denies any SI/HI. Encouraged patient to attend group therapies/sessions to learn new coping skills to prevent relapse. Pt. will be D/C today, UDS provided, see results in the chart. Pt remains compliant with the treatment plan. PRN VISTARIL, TRAZODONE given during my shift. V/S remain WNL. RR=16, even and unlabored, lungs clear upon auscultation, abdomen soft and non- distended. Pt denies nausea, vomiting and diarrhea. LAST CIWA=2 ,COWS=3 at 0400 , INTAKE= 1565 ml, voided x2 , slept 10 hours. Safety measures in place : bed on lowest position with side rails x2 up for safety, call light within reach. Will continue to monitor closely and offer help.
--- NOTE | 2017-02-23 07:55 | NUR ---
START OF SHIFT Received report from night nurse. 21 year old male admitted on 02/20/17 for methamphetamine, ETOH, PCP, DMT and Bath salts. Pt has been compliant with ordered medications and is medically cleared for discharge today. No acute s/s of withdrawals noted. Pt remains safe throughout hospitalization. Most recent CIWA is 2. PRN Vistaril and Trazodone administered at night and effective. V/S remain wnl. Per report pt slept for 10 hours. All needs met at this time. Pt is resting in bed at this time, RR even and unlabored. Safety precautions remain in place, will continue to monitor.
[2017-02-23 08:01] VITALS: BP 122/71
[2017-02-23] MEDS: THIAMINE HCL 100 MG TABLET PO SCH (08:55)
[2017-02-23] MEDS: DOCUSATE SODIUM 250 MG CAPSULE PO SCH (08:55)
[2017-02-23] MEDS: FOLIC ACID 1 MG TABLET PO SCH (08:55)
[2017-02-23] MEDS: MULTIVITAMINS,THERAPEUTIC TABLET PO SCH (08:55)
[2017-02-23] MEDS: GABAPENTIN 300 MG CAPSULE PO SCH (08:56)
--- NOTE | 2017-02-23 09:40 | NUR ---
D/C NOTE Pt is A/O x4. V/S remain WNL. Pt denies SI/HI or hallucinations. Pt shows no s/s of acute withdrawal at this time, and is stable. has medically cleared pt for d/c . Education on Hepatitis C, smoking cessation and medication side effects provided. Pt verbalizes understanding. All pt belongings are in belonging bag, including prescriptions, pt did not have any home medications. Refuses PNU vaccination. Pt is being accompanied by [facility] [employer] at this time to be transported to rehab. All needs met.
== END 2017-02-23 09:40 | DRG 895 ==
LOC: SRC 08:58
PROVIDERS: ADMIT Internal Medicine; ATTEND Internal Medicine
PROC: HZ2ZZZZ Detoxification Services for Substance Abuse Treatment (ICD-10-PCS; principal; 2017-02-20)
PROC: HZ41ZZZ Group Counseling for Substance Abuse Treatment, Behavioral (ICD-10-PCS; principal; 2017-02-20)
PROC: HZ31ZZZ Individual Counseling for Substance Abuse Treatment, Behavioral (ICD-10-PCS; 2017-02-22)
DX: F10.230 Alcohol dependence with withdrawal, uncomplicated (principal); F15.220 Other stimulant dependence with intoxication, uncomplicated; Y90.9 Presence of alcohol in blood, level not specified; F16.90 Hallucinogen use, unspecified, uncomplicated; Z59.0 Homelessness; Z79.899 Other long term (current) drug therapy; F17.210 Nicotine dependence, cigarettes, uncomplicated
CPT/HCPCS: 70030-TC; 71010; 80307; 80324; A4663